=== PATIENT | female | born 1975 | race Caucasian/White ===

== ENCOUNTER 2019-04-12 07:09 | Emergency (ER) | payer SELFPAY ==
[~2019-04-12] VITALS: Ht 154.9 cm; Wt 67.6 kg
[2019-04-12 07:23] VITALS: Ht 154.9 cm; Wt 67.6 kg
[2019-04-12 08:27] VITALS: BP 115/72
== END 2019-04-12 08:27 | disposition home or self-care (01) ==
LOC: ED 07:09
DX: R09.1 Pleurisy (principal); M54.6 Pain in thoracic spine; E78.5 Hyperlipidemia, unspecified; Z88.0 Allergy status to penicillin
CPT/HCPCS: J1885